=== PATIENT | male | born 1995 | race Hispanic/Latino ===

== ENCOUNTER 2021-01-25 12:31 | Emergency (ER) | payer SELFPAY ==
[~2021-01-25] VITALS: Ht 167.6 cm; Wt 88.1 kg
[2021-01-25] MEDS ORDERED: ONDANSETRON HCL INJ 2MG/ML 2ML 2 MG/ML VIAL IV STA (12:42)
[2021-01-25] MEDS ORDERED: SODIUM CHLORIDE 0.9% 1000ML 1,000 ML IV STA (12:42)
[2021-01-25] MEDS ORDERED: Morphine 2mg Syringe 2 MG/ML SYR IV ONE (12:45)
[2021-01-25] MEDS: CEFTRIAXONE 1 GM in SODIUM CHLORIDE 0.9% 50ML 50 ML IV SCH (12:45)
[2021-01-25] MEDS ORDERED: TETANUS/DIPHTHERIA TOX ADULT 0.5 ML SYR IM ONE (12:45)
[2021-01-25] MEDS ORDERED: Morphine 4mg Syringe 4 MG/ML INJ ONE (12:55)
[2021-01-25] MEDS ORDERED: ONDANSETRON HCL INJ 2MG/ML 2ML 2 MG/ML VIAL ONE (12:55)
[2021-01-25] MEDS ORDERED: SODIUM CHLORIDE 0.9% 1000ML 1,000 ML ONE (12:56)
[2021-01-25] MEDS ORDERED: TETANUS/DIPHTHERIA TOX ADULT 0.5 ML SYR ONE (12:56)
[2021-01-25] MEDS ORDERED: CEFTRIAXONE 1 GM VIAL ONE (12:56)
[2021-01-25] MEDS ORDERED: SODIUM CHLORIDE 0.9% 50ML 50 ML ONE (12:56)
[2021-01-25] MEDS ORDERED: ALLOPURINOL300 MG PO (13:01)
[2021-01-25] MEDS ORDERED: CARVEDILOL12.5 MG PO (13:01)
[2021-01-25] MEDS ORDERED: AMLODIPINE BESY10 MG PO (13:01)
[2021-01-25] MEDS ORDERED: Morphine 4mg Syringe 4 MG/ML INJ IV ONE (13:45)
[2021-01-25] MEDS ORDERED: AUGMENTIN 500-1 EACH PO (15:57)
== END 2021-01-25 16:08 | disposition home or self-care (01) ==
LOC: FSED 12:40
DX: S66.321A Laceration of extensor muscle, fascia and tendon of left index finger at wrist and hand level, initial encounter (principal); W26.0XXA Contact with knife, initial encounter; Y92.008 Other place in unspecified non-institutional (private) residence as the place of occurrence of the external cause; Z20.822 Contact with and (suspected) exposure to COVID-19
CPT/HCPCS: 12045; 73120; 80053; 85025; 85610; 90471; 90714; 96374; 96375; 99284; J0696; J2270 ×2; J2405; J7030; U0002

== ENCOUNTER 2021-02-19 08:54 | Emergency (ER) | payer SELFPAY ==
[~2021-02-19] VITALS: Ht 167.6 cm; Wt 88.6 kg
[~2021-02-19 08:54] MED LIST: ALLOPURINOL300 MG PO; AMLODIPINE BESY10 MG PO; AUGMENTIN 500-1 EACH PO; CARVEDILOL12.5 MG PO
[2021-02-19] MEDS ORDERED: ATORVASTATIN CA20 MG PO (09:21)
[2021-02-19] MEDS ORDERED: DOXYCYCLINE MO100 M1 PO (09:31)
[2021-02-19] MEDS ORDERED: CLEOCIN HCL300 MG PO (09:31)
[2021-02-19] MEDS ORDERED: PROBIOTIC & AC1 EACH PO (09:31)
== END 2021-02-19 09:39 | disposition home or self-care (01) ==
LOC: FSED 08:59
DX: Z48.02 Encounter for removal of sutures (principal); L08.9 Local infection of the skin and subcutaneous tissue, unspecified; I10 Essential (primary) hypertension; E78.5 Hyperlipidemia, unspecified; N18.9 Chronic kidney disease, unspecified
CPT/HCPCS: 99282; S0630